=== PATIENT | female | born 1960 | race Hispanic/Latino ===

== ENCOUNTER 2017-09-23 10:32 | Observation (INO) | payer BC ==
[2017-09-23 10:47] VITALS: BMI 27.3
--- NOTE | 2017-09-23 11:45 | C.PDOC ---
History Of Present Illness 57 y/o F c PMHx CA 2 months ago s/p 2 stents p/w chest pain x 6 hours. Patient states she had nausea and vomited 3 times this morning, NBNB. Then began having chest pain that she describes as pressure in the L upper chest, nonradiating, constant. She reports associated shortness of breath earlier but now gone and some lightheadedness. Denies diaphoresis, leg swelling, abdominal pain, back pain. PMD Gael Previous stents placed at [facility]. Time Seen by Provider: 09/23/17 11:32 Chief Complaint (Nursing): Chest Pain Past Medical History Vital Signs: Last Vital Signs Temp 98.3 F 09/23/17 10:46 Pulse 63 09/23/17 10:46 Resp 18 09/23/17 11:10 BP 131/81 09/23/17 10:46 Pulse Ox 99 09/23/17 11:49 - Medical History PMH: Deep Vein Thrombosis, Fractures (right foot), HTN, Hypercholesterolemia, Pulmonary Embolism Surgical History: Coronary Stent (x2) Family History: States: No Known Family Hx - Social History Hx Alcohol Use: No Hx Substance Use: No - Immunization History Hx Tetanus Toxoid Vaccination: No Hx Influenza Vaccination: No Hx Pneumococcal Vaccination: No Review Of Systems Except As Marked, All Systems Reviewed And Found Negative. Constitutional: Negative for: Fever Respiratory: Negative for: Hemoptysis Physical Exam - Physical Exam Additional Physical Exam Comments: Gen: NAD Head: NC Eyes: No scleral icterus ENT: MMM Neck: Supple Chest: No tenderness CV: Regular rate Lung: CTA /l Abd: Soft, NT Back: No CVA tenderness Skin: No rash Extremities: No leg edema Neuro: Alert, no focal deficit ED Course And Treatment - Laboratory Results Result Diagrams: 09/23/17 11:47 09/23/17 11:47 O2 Sat by Pulse Oximetry: 99 Medical Decision Making Medical Decision Making: EKG Sinus rhythm, 54 bpm, no ST elevations. T wave inversions V1-V4. Q waves V1V2. ASA not administered due to allergy, patient becomes short of breath when taking. CXR no acute disease. Disposition Discussed With DrYareli: Trey Kelly Jr. Doctor Will See Patient In The: Hospital - Disposition Disposition: HOSPITALIZED Disposition Time: 12:29 Condition: FAIR Forms: InHomeVest (Mongolian) - POA Core Measure Indicators: Chest Pain - Clinical Impression Clinical Impression: Chest pain
[2017-09-23 11:56] LABS: BASO % 0.3 % (0.0-2.0); EOS # 0.8 K/uL (0.0-0.7); EOS % 19.3 % (0.0-4.0); HEMOGLOBIN 12.6 g/dL (11.0-16.0); LYMPH # 1.1 K/uL (1.0-4.3); LYMPH % 27.7 % (20.0-40.0); MEAN CELL VOLUME 80.1 fL (81.0-99.0); MEAN CORPUSCULAR HEMOGLOBIN 26.6 pg (27.0-31.0); MEAN CORPUSCULAR HGB CONC 33.2 g/dL (33.0-37.0); MEAN PLATELET VOLUME 10.6 fL (7.2-11.7); MONO # 0.5 K/uL (0.0-0.8); MONO % 12.3 % (0.0-10.0); NEUT # 1.6 K/uL (1.8-7.0); NEUT % 40.4 % (50.0-75.0); RBC 4.73 Mil/uL (3.80-5.20); RED CELL DISTRIBUTION WIDTH 15.1 % (11.5-14.5); WHITE BLOOD COUNT 3.9 K/uL (4.8-10.8)
[2017-09-23 12:04] LABS: ALB/GLOB RATIO 0.9 (1.0-2.1); ALBUMIN 3.9 g/dL (3.5-5.0); ALT/SGPT 179 U/L (9-52); AST/SGOT 128 U/L (14-36); BLOOD UREA NITROGEN 12 mg/dL (7-17); CALCIUM 9.1 mg/dl (8.6-10.4); GFR AFRICAN-AMERICAN > 60; GFR NON-AFRICAN AMERICAN > 60
[2017-09-23 12:09] LABS: INR 1.3; PROTHROMBIN TIME 15.2 SECONDS (9.7-12.2)
[2017-09-23 12:19] LABS: CK-MB 0.79 ng/mL (0.0-3.38)
--- NOTE | 2017-09-23 12:36 | RAD ---
HISTORY: chest pressure COMPARISON: No prior. FINDINGS: LUNGS: No active pulmonary disease. PLEURA: No significant pleural effusion identified, no pneumothorax apparent. CARDIOVASCULAR: Normal. Central pulmonary vasculature is top-normal. OSSEOUS STRUCTURES: No significant abnormalities. VISUALIZED UPPER ABDOMEN: Normal. OTHER FINDINGS: None. IMPRESSION: No active disease.
[2017-09-23 13:54] LABS: GAMMA GLUTAMYL TRANSPEPTIDASE 254 U/L (8-78)
--- NOTE | 2017-09-23 14:00 | CP.PCM.HP ---
History of Present Illness - History of Present Illness History of Present Illness: CC - "Chest pain" HPI - 57 y/o F c PMHx MA In Jun 2017 s/p 2 stents complains of chest pain which started this morning. Patient states she had nausea and vomited 3 times this morning, NBNB. She than began having chest pain that she describes as pressure in the L upper chest, radiating to her shoulder which was constant. She reported associated shortness of breath earlier but now gone and some lightheadedness. 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 She states this chest pain today does not feel the same as it did when she had her MA a few months ago. Denies diaphoresis, leg swelling, abdominal pain, back pain. Denies sick contacts or recent travel. 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 absent: Chest Pain at Rest, Leg Edema, Palpitations , Syncope - Respiratory Respiratory: absent: Cough, Dyspnea - Gastrointestinal Gastrointestinal: Nausea, Vomiting. absent: Abdominal Pain, Constipation, Diarrhea - Genitourinary Genitourinary: absent: Change in Urinary Stream, Difficulty Urinating - Reproductive: Female Reproductive:Female: Cycle >35 Days - Neurological Neurological: absent: Dizziness, Numbness, Weakness - Hematologic/Lymphatic Hematologic: absent: Easy Bleeding, Easy Bruising Past Patient History - Past Social History Smoking Status: Former Smoker - CARDIAC Hx Hypercholesterolemia: Yes Hx Hypertension: Yes - PULMONARY Hx Pulmonary Embolism: Yes - MUSCULOSKELETAL/RHEUMATOLOGICAL Hx Fractures: Yes (right foot) - PSYCHIATRIC Hx Substance Use: No - SURGICAL HISTORY Hx Coronary Stent: Yes (x2) - ANESTHESIA Hx Anesthesia: Yes Hx Anesthesia Reactions: No Hx Malignant Hyperthermia: No Meds Allergies/Adverse Reactions: Allergies Allergy/AdvReac Type Severity Reaction Status Date / Time aspirin Allergy Verified 09/23/17 10:46 egg Allergy Verified 09/23/17 10:46 latex Allergy Verified 09/23/17 10:46 morphine Allergy Verified 09/23/17 10:46 Sulfa (Sulfonamide Allergy Verified 09/23/17 10:46 Antibiotics) Physical Exam - Constitutional Appears: Non-toxic, No Acute Distress - Head Exam Head Exam: ATRAUMATIC, NORMAL INSPECTION - Eye Exam Eye Exam: EOMI, Normal appearance Pupil Exam: NORMAL ACCOMODATION - ENT Exam ENT Exam: Mucous Membranes Moist - Neck Exam Neck exam: Positive for: Normal Inspection - Respiratory Exam Respiratory Exam: Clear to Auscultation Bilateral, NORMAL BREATHING PATTERN. absent: Respiratory Distress - Cardiovascular Exam Cardiovascular Exam: REGULAR RHYTHM, +S1, +S2 Additional comments: non reproducible chest tenderness - GI/Abdominal Exam GI & Abdominal Exam: Normal Bowel Sounds, Soft. absent: Distended, Firm, Guarding, Tenderness - Extremities Exam Extremities exam: Positive for: normal inspection - Back Exam Back exam: NORMAL INSPECTION - Neurological Exam Neurological exam: Alert, CN II-XII Intact, Normal Gait, Oriented x3 - Psychiatric Exam Psychiatric exam: Normal Affect, Normal Mood - Skin Skin Exam: Dry, Intact, Normal Color, Warm Results - Vital Signs Recent Vital Signs: Last Vital Signs Temp 98.3 F 09/23/17 10:46 Pulse 78 09/23/17 13:44 Resp 16 09/23/17 13:44 BP 110/76 09/23/17 13:44 Pulse Ox 98 09/23/17 13:44 - Labs Result Diagrams: 09/23/17 11:47 09/23/17 11:47 Labs: Laboratory Results - last 24 hr 09/23/17 09/23/17 09/23/17 11:47 11:47 11:47 WBC 3.9 L RBC 4.73 Hgb 12.6 Hct 37.8 MCV 80.1 L MCH 26.6 L MCHC 33.2 RDW 15.1 H Plt Count 122 L MPV 10.6 Neut % (Auto) 40.4 L Lymph % (Auto) 27.7 Nicholas % (Auto) 12.3 H Eos % (Auto) 19.3 H Baso % (Auto) 0.3 Neut # (Auto) 1.6 L Lymph # (Auto) 1.1 Nicholas # (Auto) 0.5 Eos # (Auto) 0.8 H Baso # (Auto) 0.0 Differential Comment PT 15.2 H INR 1.3 APTT 37 H Sodium 145 Potassium 3.8 Chloride 106 Carbon Dioxide 25 Anion Gap 18 BUN 12 Creatinine 0.8 Est GFR ( Amer) > 60 Est GFR (Non-Af Amer) > 60 Random Glucose 115 H Calcium 9.1 Total Bilirubin 0.9 AST 128 H ALT 179 H Alkaline Phosphatase 351 H Total Creatine Kinase 61 CK-MB (Mass) 0.79 Troponin I 0.0240 Total Protein 8.1 Albumin 3.9 Globulin 4.2 H Albumin/Globulin Ratio 0.9 L Assessment & Plan - Assessment and Plan (Free Text) Assessment: Stable Angina r/o ACS, given patient's history of MA and stent placement in June 2017 cardiology consulted, Dr. Ruiz, help appreciated Trop #1 0.0240, f/u 2 more EKG Sinus rhythm, 54 bpm, no ST elevations. T wave inversions V1-V4. Q waves V1V2. f/u labs, lipid panel, HbA1c, Tsh f/u DDimer f/u echo Bisoprolol 2.5 mg PO daily Plavix 75mg PO daily Lisinopril 2.5mg PO daily Add Isosorbide 60mg PO daily Transaminitis AST/ALT 128/179 GGT 254 Alk phos 351 Tbil 0.0 f/u abd US Statin on hold f/u HIV Hepatitis panel Elevated blood glucose f/u HbA1c Hx DVT/PE on Eliquis f/u DDimer Prophylactic Measures Pepcid 20mg PO BID Eliquis 5mg PO BID Zofran prn nausea Heart healthy diet - NPO after midnight for abd US in am Discussed with Dr. Kelly. All management per Dr. Robin Bentley PGY 2
[2017-09-23 14:04] LABS: B-TYPE NATRIURETIC PEPTIDE 772 pg/mL (0-900)
[2017-09-23 14:26] LABS: HEPATITIS B SURFACE AG Negative (NEGATIVE)
[2017-09-23 14:32] LABS: HEPATITIS B CORE AB NEGATIVE (NEGATIVE)
[2017-09-23 15:27] LABS: HEPATITIS C ANTIBODY NEGATIVE (NEGATIVE)
[2017-09-23 15:58] VITALS: RESP 20
[2017-09-23 15:59] LABS: HEPATITIS A IGM NEGATIVE (NEGATIVE)
--- NOTE | 2017-09-23 20:18 | US ---
EXAM: US Abdomen Complete EXAM DATE/TIME: Exam ordered 09/23/2017 7:00 AM CLINICAL HISTORY: 57 years old, female; Abnormal findings; Abnormal lab test; Other: Elevated ast/alt TECHNIQUE: Real-time ultrasound of the abdomen (complete) with image documentation. COMPARISON: No relevant prior studies available. FINDINGS: Liver: The liver measures 17.6 cm in craniocaudal span. The liver is mildly heterogeneous in echotexture. The hepatic veins show normal blood flow direction. The middle hepatic vein shows normal phasic flow. No intrahepatic bile duct dilation. Gallbladder: Unremarkable. No gallstones. Common bile duct: Common bile duct measures 3 mm. No stones. No dilation. Pancreas: Unremarkable as visualized. Kidneys: The right kidney measures 11.7 x 4.2 x 4.4 cm. The left kidney measures 11.4 x 4.9 x 5.2 cm. No stones. No hydronephrosis. Spleen: The spleen measures 10.6 cm in craniocaudal span. Aorta: Unremarkable. No aneurysm. Inferior vena cava: Unremarkable. Free fluid: There is normal blood flow direction in the main portal vein. IMPRESSION: 1. Hepatomegaly. The liver is mildly heterogeneous in echotexture suggesting underlying infiltrative process. MR might be helpful.
[2017-09-23 20:37] LABS: CK-MB 0.65 ng/mL (0.0-3.38); TROPONIN I 0.034 ng/mL (0.00-0.120)
--- NOTE | 2017-09-23 23:42 | CARD ---
APPROVED REPORT EKG Measurement Heart [id number] <Conclusion> Sinus bradycardia Septal infarct, age undetermined T wave abnormality, consider anterior ischemia Abnormal ECG
--- NOTE | 2017-09-24 00:48 | CP.PCM.CON ---
History of Present Illness - History of Present Illness History of Present Illness: 57 F with hx of ND and stents, PE admitted for chest pain Trops x 2 negative Awaiting ECHO Continue current meds CC - "Chest pain" HPI - 57 y/o F c PMHx ND In Jun 2017 s/p 2 stents complains of chest pain which started this morning. Patient states she had nausea and vomited 3 times this morning, NBNB. She than began having chest pain that she describes as pressure in the L upper chest, radiating to her shoulder which was constant. She reported associated shortness of breath earlier but now gone and some lightheadedness. 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 She states this chest pain today does not feel the same as it did when she had her ND a few months ago. Denies diaphoresis, leg swelling, abdominal pain, back pain. Denies sick contacts or recent travel. 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 absent: Chest Pain at Rest, Leg Edema, Palpitations , Syncope - Respiratory Respiratory: absent: Cough, Dyspnea - Gastrointestinal Gastrointestinal: Nausea, Vomiting. absent: Abdominal Pain, Constipation, Diarrhea - Genitourinary Genitourinary: absent: Change in Urinary Stream, Difficulty Urinating - Reproductive: Female Reproductive:Female: Cycle >35 Days - Neurological Neurological: absent: Dizziness, Numbness, Weakness - Hematologic/Lymphatic Hematologic: absent: Easy Bleeding, Easy Bruising Physical Exam - Constitutional Appears: Non-toxic, No Acute Distress - Head Exam Head Exam: ATRAUMATIC, NORMAL INSPECTION - Eye Exam Eye Exam: EOMI, Normal appearance Pupil Exam: NORMAL ACCOMODATION - ENT Exam ENT Exam: Mucous Membranes Moist - Neck Exam Neck exam: Positive for: Normal Inspection - Respiratory Exam Respiratory Exam: Clear to Auscultation Bilateral, NORMAL BREATHING PATTERN. absent: Respiratory Distress - Cardiovascular Exam Cardiovascular Exam: REGULAR RHYTHM, +S1, +S2 Additional comments: non reproducible chest tenderness - GI/Abdominal Exam GI & Abdominal Exam: Normal Bowel Sounds, Soft. absent: Distended, Firm, Guarding, Tenderness - Extremities Exam Extremities exam: Positive for: normal inspection - Back Exam Back exam: NORMAL INSPECTION - Neurological Exam Neurological exam: Alert, CN II-XII Intact, Normal Gait, Oriented x3 - Psychiatric Exam Psychiatric exam: Normal Affect, Normal Mood - Skin Skin Exam: Dry, Intact, Normal Color, Warm Past Patient History - Past Social History Smoking Status: Former Smoker - CARDIAC Hx Hypercholesterolemia: Yes Hx Hypertension: Yes - PULMONARY Hx Pulmonary Embolism: Yes - MUSCULOSKELETAL/RHEUMATOLOGICAL Hx Fractures: Yes (right foot) - PSYCHIATRIC Hx Substance Use: No - SURGICAL HISTORY Hx Coronary Stent: Yes (x2) - ANESTHESIA Hx Anesthesia: Yes Hx Anesthesia Reactions: No Hx Malignant Hyperthermia: No Meds Allergies/Adverse Reactions: Allergies Allergy/AdvReac Type Severity Reaction Status Date / Time aspirin Allergy Verified 09/23/17 10:46 egg Allergy Verified 09/23/17 10:46 latex Allergy Verified 09/23/17 10:46 morphine Allergy Verified 09/23/17 10:46 Sulfa (Sulfonamide Allergy Verified 09/23/17 10:46 Antibiotics) - Medications Medications: Current Medications Apixaban (Eliquis) 5 mg PO BID [facility] Last Admin: 09/23/17 17:26 Dose: 5 mg Bisoprolol Fumarate (Zebeta) 2.5 mg PO DAILY [facility] Clopidogrel Bisulfate (Plavix) 75 mg PO DAILY [facility] Isosorbide Mononitrate (Imdur) 60 mg PO DAILY [facility] Lisinopril (Zestril) 2.5 mg PO DAILY [facility] Ondansetron HCl (Zofran Inj) 4 mg IVP Q6 PRN PRN Reason: Nausea/Vomiting Results - Vital Signs Recent Vital Signs: Last Vital Signs Temp 97.9 F 09/23/17 23:15 Pulse 59 L 09/23/17 23:15 Resp 20 09/23/17 23:15 BP 107/72 09/23/17 23:15 Pulse Ox 98 09/23/17 23:15 - Labs Result Diagrams: 09/24/17 07:58 09/24/17 07:58 Labs: Laboratory Results - last 24 hr 09/23/17 09/23/17 09/23/17 11:47 11:47 11:47 WBC 3.9 L RBC 4.73 Hgb 12.6 Hct 37.8 MCV 80.1 L MCH 26.6 L MCHC 33.2 RDW 15.1 H Plt Count 122 L MPV 10.6 Neut % (Auto) 40.4 L Lymph % (Auto) 27.7 [place] % (Auto) 12.3 H Eos % (Auto) 19.3 H Baso % (Auto) 0.3 Neut # (Auto) 1.6 L Lymph # (Auto) 1.1 [place] # (Auto) 0.5 Eos # (Auto) 0.8 H Baso # (Auto) 0.0 Differential Comment PT 15.2 H INR 1.3 APTT 37 H D-Dimer, Quantitative Sodium 145 Potassium 3.8 Chloride 106 Carbon Dioxide 25 Anion Gap 18 BUN 12 Creatinine 0.8 Est GFR ( Amer) > 60 Est GFR (Non-Af Amer) > 60 Random Glucose 115 H Calcium 9.1 Total Bilirubin 0.9 GGT 254 H AST 128 H ALT 179 H Alkaline Phosphatase 351 H Total Creatine Kinase 61 CK-MB (Mass) 0.79 Troponin I 0.0240 NT-Pro-B Natriuret Pep 772 Total Protein 8.1 Albumin 3.9 Globulin 4.2 H Albumin/Globulin Ratio 0.9 L TSH 3rd Generation Hepatitis A IgM Ab Hep Bs Antigen Hep B Core IgM Ab Hepatitis C Antibody 09/23/17 09/23/17 09/23/17 13:46 14:43 14:47 WBC RBC Hgb Hct MCV MCH MCHC RDW Plt Count MPV Neut % (Auto) Lymph % (Auto) [place] % (Auto) Eos % (Auto) Baso % (Auto) Neut # (Auto) Lymph # (Auto) [place] # (Auto) Eos # (Auto) Baso # (Auto) Differential Comment PT INR APTT D-Dimer, Quantitative 240 Sodium Potassium Chloride Carbon Dioxide Anion Gap BUN Creatinine Est GFR ( Amer) Est GFR (Non-Af Amer) Random Glucose Calcium Total Bilirubin GGT AST ALT Alkaline Phosphatase Total Creatine Kinase CK-MB (Mass) Troponin I NT-Pro-B Natriuret Pep Total Protein Albumin Globulin Albumin/Globulin Ratio TSH 3rd Generation 3.20 Hepatitis A IgM Ab Negative Hep Bs Antigen Negative Hep B Core IgM Ab Negative Hepatitis C Antibody Negative 09/23/17 20:02 WBC RBC Hgb Hct MCV MCH MCHC RDW Plt Count MPV Neut % (Auto) Lymph % (Auto) [place] % (Auto) Eos % (Auto) Baso % (Auto) Neut # (Auto) Lymph # (Auto) [place] # (Auto) Eos # (Auto) Baso # (Auto) Differential Comment PT INR APTT D-Dimer, Quantitative Sodium Potassium Chloride Carbon Dioxide Anion Gap BUN Creatinine Est GFR ( Amer) Est GFR (Non-Af Amer) Random Glucose Calcium Total Bilirubin GGT AST ALT Alkaline Phosphatase Total Creatine Kinase 54 CK-MB (Mass) 0.65 Troponin I 0.0340 NT-Pro-B Natriuret Pep Total Protein Albumin Globulin Albumin/Globulin Ratio TSH 3rd Generation Hepatitis A IgM Ab Hep Bs Antigen Hep B Core IgM Ab Hepatitis C Antibody Assessment & Plan - Assessment and Plan (Free Text) Assessment: Stable Angina Cardio (Joseph) - will follow cardio reccs All trops negative No ST changes or arrythmogenic intervals on EKG f/u echo Bisoprolol 2.5 mg PO daily Plavix 75mg PO daily Lisinopril 2.5mg PO daily Isosorbide 60mg PO daily Transaminitis abd US - heterogenous echotexture suggesting underlying infiltrative process - f /u with MR. Patient made aware and instructed to follow up with regular doctor to have this further investigated. Statin on hold HIV negatve hep negative Hx DVT/PE Eliquis 5 PO BID Prophylactic Measures GI PPx not indicated Eliquis 5mg PO BID
[2017-09-24 03:13] LABS: CK-MB 0.47 ng/mL (0.0-3.38); TROPONIN I 0.038 ng/mL (0.00-0.120)
[2017-09-24 04:35] VITALS: O2SAT 97
[2017-09-24 08:32] LABS: BASO % 0.5 % (0.0-2.0); EOS # 0.6 K/uL (0.0-0.7); EOS % 18.3 % (0.0-4.0); HEMOGLOBIN 11.9 g/dL (11.0-16.0); LYMPH # 1.1 K/uL (1.0-4.3); LYMPH % 30.2 % (20.0-40.0); MEAN CELL VOLUME 80.2 fL (81.0-99.0); MEAN CORPUSCULAR HEMOGLOBIN 26.7 pg (27.0-31.0); MEAN CORPUSCULAR HGB CONC 33.2 g/dL (33.0-37.0); MEAN PLATELET VOLUME 10.3 fL (7.2-11.7); MONO # 0.4 K/uL (0.0-0.8); NEUT # 1.4 K/uL (1.8-7.0); RBC 4.46 Mil/uL (3.80-5.20); RED CELL DISTRIBUTION WIDTH 15.1 % (11.5-14.5); WHITE BLOOD COUNT 3.5 K/uL (4.8-10.8)
[2017-09-24 08:39] LABS: ALB/GLOB RATIO 0.9 (1.0-2.1); ALBUMIN 3.4 g/dL (3.5-5.0); ALT/SGPT 179 U/L (9-52); AST/SGOT 147 U/L (14-36); BLOOD UREA NITROGEN 13 mg/dL (7-17); CALCIUM 8.9 mg/dl (8.6-10.4); GFR AFRICAN-AMERICAN > 60; GFR NON-AFRICAN AMERICAN > 60; HDL CHOLESTEROL 30 mg/dL (30-70)
[2017-09-24 08:50] LABS: LDL CHOLESTEROL 56 mg/dL (0-129)
[2017-09-24 09:24] VITALS: BP 100/68; PULSE 58; TEMP 97.6
--- NOTE | 2017-09-24 10:48 | CP.PCM.PN ---
<Sammy Covarrubias - Last Filed: 09/24/17 15:26> Subjective - Date & Time of Evaluation Date of Evaluation: 09/24/17 Time of Evaluation: 10:45 - Subjective Subjective: Patient seen and examined at bedside Doing well chest pain resolved wants to go home no other complaints at this time Echo today, follow cardio reccs Objective - Vital Signs/Intake and Output Vital Signs (last 24 hours): Temp Pulse Resp BP Pulse Ox 97.6 F 58 L 20 100/68 97 09/24/17 07:30 09/24/17 07:30 09/24/17 07:30 09/24/17 07:30 09/24/17 04:35 - Medications Medications: Current Medications Apixaban (Eliquis) 5 mg PO BID COUNTS INCLUDE 234 BEDS AT THE [facility] Last Admin: 09/24/17 10:17 Dose: 5 mg Bisoprolol Fumarate (Zebeta) 2.5 mg PO DAILY COUNTS INCLUDE 234 BEDS AT THE [facility] Last Admin: 09/24/17 10:18 Dose: 2.5 mg Clopidogrel Bisulfate (Plavix) 75 mg PO DAILY COUNTS INCLUDE 234 BEDS AT THE [facility] Last Admin: 09/24/17 10:16 Dose: Not Given Isosorbide Mononitrate (Imdur) 60 mg PO DAILY COUNTS INCLUDE 234 BEDS AT THE [facility] Last Admin: 09/24/17 10:17 Dose: Not Given Lisinopril (Zestril) 2.5 mg PO DAILY COUNTS INCLUDE 234 BEDS AT THE [facility] Last Admin: 09/24/17 10:19 Dose: 2.5 mg Ondansetron HCl (Zofran Inj) 4 mg IVP Q6 PRN PRN Reason: Nausea/Vomiting - Labs Labs: 09/24/17 07:58 09/24/17 07:58 PT 15.2 SECONDS (9.7-12.2) H 09/23/17 11:47 INR 1.3 09/23/17 11:47 APTT 37 SECONDS (21-34) H 09/23/17 11:47 - Constitutional Appears: Well - Head Exam Head Exam: ATRAUMATIC, NORMAL INSPECTION, NORMOCEPHALIC - Eye Exam Eye Exam: EOMI, Normal appearance, PERRL Pupil Exam: NORMAL ACCOMODATION, PERRL - ENT Exam ENT Exam: Mucous Membranes Moist, Normal Exam - Neck Exam Neck Exam: Full ROM, Normal Inspection. absent: Lymphadenopathy - Respiratory Exam Respiratory Exam: Clear to Ausculation Bilateral, NORMAL BREATHING PATTERN - Cardiovascular Exam Cardiovascular Exam: REGULAR RHYTHM, +S1, +S2. absent: Murmur - GI/Abdominal Exam GI & Abdominal Exam: Soft, Normal Bowel Sounds. absent: Tenderness - Extremities Exam Extremities Exam: Full ROM, Normal Capillary Refill, Normal Inspection. absent : Joint Swelling, Pedal Edema - Back Exam Back Exam: NORMAL INSPECTION - Neurological Exam Neurological Exam: Alert, Awake, CN II-XII Intact, Normal Gait, Oriented x3 - Psychiatric Exam Psychiatric exam: Normal Affect, Normal Mood - Skin Skin Exam: Dry, Intact, Normal Color, Warm Assessment and Plan - Assessment and Plan (Free Text) Assessment: Stable Angina Cardio (Joseph) - will follow cardio reccs All trops negative No ST changes or arrythmogenic intervals on EKG f/u echo Bisoprolol 2.5 mg PO daily Plavix 75mg PO daily Lisinopril 2.5mg PO daily Isosorbide 60mg PO daily Transaminitis abd US - heterogenous echotexture suggesting underlying infiltrative process - f /u with MR. Patient made aware and instructed to follow up with regular doctor to have this further investigated. Statin on hold HIV negatve hep negative Hx DVT/PE Eliquis 5 PO BID Prophylactic Measures GI PPx not indicated Eliquis 5mg PO BID <Trey Kelly Jr. - Last Filed: 09/24/17 15:45> Objective - Vital Signs/Intake and Output Vital Signs (last 24 hours): Temp Pulse Resp BP Pulse Ox 97.6 F 58 L 20 100/68 97 09/24/17 07:30 09/24/17 09:00 09/24/17 07:30 09/24/17 07:30 09/24/17 13:02 - Labs Labs: 09/24/17 07:58 09/24/17 07:58 PT 15.2 SECONDS (9.7-12.2) H 09/23/17 11:47 INR 1.3 09/23/17 11:47 APTT 37 SECONDS (21-34) H 09/23/17 11:47 Attending/Attestation - Attestation I have personally seen and examined this patient.: Yes I have fully participated in the care of the patient.: Yes I have reviewed all pertinent clinical information, including history, physical exam and plan: Yes Notes (Text): 09/24/17 15:45 Agree with resident note findings and plan of care
--- NOTE | 2017-09-24 15:28 | CP.PCM.DIS ---
Provider - Provider Date of Admission: 09/23/17 12:28 Attending physician: Trey Kelly Jr, MD Primary care physician: Fortino Consults: Joseph Time Spent in preparation of Discharge (in minutes): 45 Hospital Course - Lab Results Lab Results: Most Recent Lab Values WBC 3.5 K/uL (4.8-10.8) L 09/24/17 07:58 RBC 4.46 Mil/uL (3.80-5.20) 09/24/17 07:58 Hgb 11.9 g/dL (11.0-16.0) 09/24/17 07:58 Hct 35.7 % (34.0-47.0) 09/24/17 07:58 MCV 80.2 fL (81.0-99.0) L 09/24/17 07:58 MCH 26.7 pg (27.0-31.0) L 09/24/17 07:58 MCHC 33.2 g/dL (33.0-37.0) 09/24/17 07:58 RDW 15.1 % (11.5-14.5) H 09/24/17 07:58 Plt Count 124 K/uL (130-400) L 09/24/17 07:58 MPV 10.3 fL (7.2-11.7) 09/24/17 07:58 Neut % (Auto) 39.0 % (50.0-75.0) L 09/24/17 07:58 Lymph % (Auto) 30.2 % (20.0-40.0) 09/24/17 07:58 Smith % (Auto) 12.0 % (0.0-10.0) H 09/24/17 07:58 Eos % (Auto) 18.3 % (0.0-4.0) H 09/24/17 07:58 Baso % (Auto) 0.5 % (0.0-2.0) 09/24/17 07:58 Neut # (Auto) 1.4 K/uL (1.8-7.0) L 09/24/17 07:58 Lymph # (Auto) 1.1 K/uL (1.0-4.3) 09/24/17 07:58 Smith # (Auto) 0.4 K/uL (0.0-0.8) 09/24/17 07:58 Eos # (Auto) 0.6 K/uL (0.0-0.7) 09/24/17 07:58 Baso # (Auto) 0.0 K/uL (0.0-0.2) 09/24/17 07:58 Differential Comment 09/23/17 11:47 PT 15.2 SECONDS (9.7-12.2) H 09/23/17 11:47 INR 1.3 09/23/17 11:47 APTT 37 SECONDS (21-34) H 09/23/17 11:47 D-Dimer, Quantitative 240 ng/mlDDU (0-243) 09/23/17 14:47 Sodium 144 mmol/L (132-148) 09/24/17 07:58 Potassium 3.9 mmol/L (3.6-5.2) 09/24/17 07:58 Chloride 105 mmol/L (98-107) 09/24/17 07:58 Carbon Dioxide 28 mmol/L (22-30) 09/24/17 07:58 Anion Gap 15 (10-20) 09/24/17 07:58 BUN 13 mg/dL (7-17) 09/24/17 07:58 Creatinine 0.9 mg/dL (0.7-1.2) 09/24/17 07:58 Est GFR ( Amer) > 60 09/24/17 07:58 Est GFR (Non-Af Amer) > 60 09/24/17 07:58 Random Glucose 85 mg/dL (65-105) 09/24/17 07:58 Hemoglobin A1c 5.7 % (4.2-6.5) 09/24/17 07:58 Calcium 8.9 mg/dl (8.6-10.4) 09/24/17 07:58 Total Bilirubin 0.9 mg/dL (0.2-1.3) 09/24/17 07:58 GGT 254 U/L (8-78) H 09/23/17 11:47 AST 147 U/L (14-36) H 09/24/17 07:58 ALT 179 U/L (9-52) H 09/24/17 07:58 Alkaline Phosphatase 344 U/L (38-126) H 09/24/17 07:58 Total Creatine Kinase 55 U/L (30-135) 09/24/17 02:20 CK-MB (Mass) 0.47 ng/mL (0.0-3.38) 09/24/17 02:20 Troponin I 0.0380 ng/mL (0.00-0.120) 09/24/17 02:20 NT-Pro-B Natriuret Pep 772 pg/mL (0-900) 09/23/17 11:47 Total Protein 7.4 g/dL (6.3-8.3) 09/24/17 07:58 Albumin 3.4 g/dL (3.5-5.0) L 09/24/17 07:58 Globulin 3.9 gm/dL (2.2-3.9) 09/24/17 07:58 Albumin/Globulin Ratio 0.9 (1.0-2.1) L 09/24/17 07:58 Triglycerides 88 mg/dL (0-149) 09/24/17 07:58 Cholesterol 119 mg/dL (0-199) 09/24/17 07:58 LDL Cholesterol Direct 56 mg/dL (0-129) 09/24/17 07:58 HDL Cholesterol 30 mg/dL (30-70) 09/24/17 07:58 TSH 3rd Generation 3.20 mIU/L (0.46-4.68) 09/23/17 14:43 Hepatitis A IgM Ab Negative (NEGATIVE) 09/23/17 13:46 Hep Bs Antigen Negative (NEGATIVE) 09/23/17 13:46 Hep B Core IgM Ab Negative (NEGATIVE) 09/23/17 13:46 Hepatitis C Antibody Negative (NEGATIVE) 09/23/17 13:46 HIV 1&2 Antibody Screen Negative (NEGATIVE) 09/24/17 07:58 - Hospital Course Hospital Course: 57 y/o F c PMHx NV In Jun 2017 s/p 2 stents complains of chest pain which started this morning. Patient states she had nausea and vomited 3 times this morning, NBNB. She than began having chest pain that she describes as pressure in the L upper chest, radiating to her shoulder which was constant. She reported associated shortness of breath earlier but now gone and some lightheadedness. She has been compliant with Plavix therapy (not on asa due to allergy) and follows up regularly with her hand potter outpatient. She states this chest pain today does not feel the same as it did when she had her NV a few months ago. Denies diaphoresis, leg swelling, abdominal pain, back pain. Denies sick contacts or recent travel. Discharge Exam - Head Exam Head Exam: ATRAUMATIC, NORMAL INSPECTION, NORMOCEPHALIC - Eye Exam Eye Exam: EOMI, Normal appearance, PERRL Pupil Exam: NORMAL ACCOMODATION, PERRL - GI/Abdominal Exam GI & Abdominal Exam: Normal Bowel Sounds - Neurological Exam Neurological exam: Alert, CN II-XII Intact, Normal Gait, Oriented x3, Reflexes Normal - Psychiatric Exam Psychiatric exam: Normal Affect, Normal Mood - Skin Skin Exam: Dry, Intact, Normal Color, Warm Discharge Plan - Follow Up Plan Condition: FAIR Disposition: HOME/ ROUTINE Instructions: Heart Healthy Diet, Chest Pain (DC) Additional Instructions: Please follow up with regular doctor in 7-10 days. Bring results of Abdominal US so they can follow up liver findings Referrals: Trey Kelly Jr., MD [Medical Doctor] -
--- NOTE | 2017-09-24 17:38 | CARD ---
APPROVED REPORT EXAM: Two-dimensional and M-mode echocardiogram with Doppler and color Doppler. Other Information Quality : GoodRhythm : INDICATION Non STEMI RISK FACTORS Hypertension Hyperlipidemia 2D DIMENSIONS IVSd1.0 (0.7-1.1cm)LVDd4.7 (3.9-5.9cm) PWd1.0 (0.7-1.1cm)LVDs2.7 (2.5-4.0cm) FS (%) 43.0 %LVEF (%)50.0 (>50%) M-Mode DIMENSIONS Left Atrium (MM)2.88 (2.5-4.0cm)Aortic Root3.48 (2.2-3.7cm) Aortic Cusp Exc.2.38 (1.5-2.0cm) Mitral Valve MV E Hthagwhq46.9cm/sMV A Bxzbxyja89.0cm/sE/A ratio1.0 TDI E/Lateral E'0.0E/Medial E'0.0 Tricuspid Valve TR Peak Ywblrvzr050cb/sTR Peak Gr.[id number] LEFT VENTRICLE The left ventricle is normal size. There is normal left ventricular wall thickness. Left ventricle ejection fraction is borderline. Septal and Apical hypokinesis Transmitral Doppler flow pattern is abnormal. RIGHT VENTRICLE The right ventricle is normal size. There is normal right ventricular wall thickness. The right ventricular systolic function is normal. ATRIA The left atrium size is normal. The right atrium size is normal. AORTIC VALVE The aortic valve is mildly thickened. No aortic regurgitation is present. There is no aortic valvular stenosis. MITRAL VALVE The mitral valve is mildly thickened. There is no mitral valve stenosis. Mitral regurgitation is trace. TRICUSPID VALVE The tricuspid valve is normal in structure. There is no tricuspid valve regurgitation noted. GREAT VESSELS The aortic root is normal in size. The IVC is normal in size and collapses >50% with inspiration. PERICARDIAL EFFUSION There is no pericardial effusion. <Conclusion> The left ventricle is normal size. There is normal left ventricular wall thickness. Left ventricle ejection fraction is borderline. Septal and Apical hypokinesis
== END 2017-09-24 15:26 | disposition home or self-care (01) ==
LOC: C.ER 10:32 → C.9E 12:28 → C.6T 13:35
PROVIDERS: ADMIT Internal Medicine; ATTEND Internal Medicine
DX: I20.8 Other forms of angina pectoris (principal); I25.2 Old myocardial infarction; Z95.5 Presence of coronary angioplasty implant and graft; Z86.718 Personal history of other venous thrombosis and embolism; I10 Essential (primary) hypertension; E78.00 Pure hypercholesterolemia, unspecified; Z86.711 Personal history of pulmonary embolism; Z79.02 Long term (current) use of antithrombotics/antiplatelets; Z88.6 Allergy status to analgesic agent; Z88.0 Allergy status to penicillin; Z88.2 Allergy status to sulfonamides; Z88.5 Allergy status to narcotic agent; Z91.040 Latex allergy status; Z91.012 Allergy to eggs; Z79.01 Long term (current) use of anticoagulants; Z82.49 Family history of ischemic heart disease and other diseases of the circulatory system; Z87.891 Personal history of nicotine dependence; R74.0 Nonspecific elevation of levels of transaminase and lactic acid dehydrogenase [LDH]; R73.9 Hyperglycemia, unspecified
CPT/HCPCS: 36415; 71045; 76700; 80053; 80061; 80074; 82550; 82553; 82977; 83036; 83880; 84443; 84484; 85025; 85378; 85610; 85730; 86592; 86703; 93005; 93306; 99285; G0378

== ENCOUNTER 2018-08-16 00:10 | Emergency (ER) | payer BC ==
[2018-08-16 00:11] VITALS: BMI 27.3
[2018-08-16 00:23] VITALS: O2SAT 96
--- NOTE | 2018-08-16 00:32 | C.PDOC ---
History Of Present Illness 58 year old female with PMHx of AR on Jun 2017 s/p stents x 2 presents to the ED c/o persistent left lower lip/facial area swelling associated itching that started this morning. Patient states she applied oragel twice last night to left lower tooth gum. Patient currently on clindamycin for tooth infection for the past week. Patient denies fever, chills, SOB, wheezing. PERSIST L LOWER LIP/FACIAL SWELL SINCE THIS MORNING. PS APPLIED ORAGEL TWICE LAST NIGHT TO LOWER L TOOTH GUM. ON CLINDAMYCIN FOR TOOTH INFXN X 1 WEEK. NO FEVER. +ASSOC ITCH. NO SOB PMHx AR In Jun 2017 s/p 2 stents EXAM NAD NONTOXIC HEENT +ANGIOEDEMA L LAT TONGUE, LOWER LIP. NO STRIDOR, DROOL NECK SUPPLE NO HIVES REMAINDER NEG Time Seen by Provider: 08/16/18 00:31 Chief Complaint (Nursing): Allergic Reaction History Per: Patient History/Exam Limitations: no limitations Onset/Duration Of Symptoms: Days Current Symptoms Are (Timing): Still Present Possible Cause: Medication Home/EMS Treatment: None Recent travel outside of the [place]: No Additional History Per: Patient Past Medical History Reviewed: Historical Data, Nursing Documentation, Vital Signs Vital Signs: Last Vital Signs Temp 99 F 08/16/18 00:17 Pulse 85 08/16/18 00:17 Resp 24 08/16/18 00:17 BP 111/82 08/16/18 00:17 Pulse Ox 96 08/16/18 00:17 - Medical History PMH: Deep Vein Thrombosis, Fractures (right foot), HTN, Hypercholesterolemia, Pulmonary Embolism Surgical History: Coronary Stent (x2) Family History: States: Unknown Family Hx - Social History Hx Alcohol Use: No Hx Substance Use: No - Immunization History Hx Tetanus Toxoid Vaccination: No Hx Influenza Vaccination: No Hx Pneumococcal Vaccination: No Review Of Systems Constitutional: Negative for: Fever, Chills ENT: Positive for: Mouth Swelling. Negative for: Throat Swelling Respiratory: Negative for: Cough, Shortness of Breath, Sputum, Wheezing Gastrointestinal: Negative for: Nausea, Vomiting, Abdominal Pain Skin: Negative for: Rash Neurological: Negative for: Weakness, Numbness Physical Exam - Physical Exam Appears: Non-toxic, No Acute Distress Skin: Normal Color, Warm, Dry, No Rash Head: Atraumatic, Normacephalic Eye(s): bilateral: Normal Inspection Nose: No Discharge Oral Mucosa: Moist, No Drooling Tongue: Swelling (+ANGIOEDEMA L LAT TONGUE) Lips: Swelling (left lower lip), Other Throat: Normal, No Erythema, No Exudate, No Drooling, Other (uvula midline, airway patent) Neck: Normal ROM, Supple Chest: Symmetrical Cardiovascular: Rhythm Regular Respiratory: Normal Breath Sounds, No Rales, No Rhonchi, No Stridor, No Wheezing Extremity: Normal ROM, No Tenderness, No Swelling Neurological/Psych: Oriented x3, Normal Speech, Normal Cognition Gait: Steady ED Course And Treatment O2 Sat by Pulse Oximetry: 96 (ON RA) Pulse Ox Interpretation: Normal Reevaluation Time: 02:08 Reassessment Condition: Improved Medical Decision Making Medical Decision Making: Plan: * Pepcid 20 mg IVP * Hydrocortisone 100 mg IV Disposition Counseled Patient/Family Regarding: Diagnosis, Need For Followup, Rx Given - Disposition Referrals: YOUR,PMD [Other] Disposition: HOME/ ROUTINE Disposition Time: 02:08 Condition: IMPROVED Prescriptions: Dexamethasone [Decadron] 12 mg PO ONCE #2 tablet Famotidine [Pepcid AC] 10 mg PO DAILY #4 tablet Instructions: Angioedema (DC) Forms: [employer] (Bhutanese) - Clinical Impression Clinical Impression: Angioedema - Scribe Statement The provider has reviewed the documentation as recorded by the Scribe Sky Kaur All medical record entries made by the Scribe were at my direction and personally dictated by me. I have reviewed the chart and agree that the record accurately reflects my personal performance of the history, physical exam, medical decision making, and the department course for this patient. I have also personally directed, reviewed, and agree with the discharge instructions and disposition.
[2018-08-16 02:02] VITALS: BP 104/69; PULSE 67; RESP 16; TEMP 98.2
== END 2018-08-16 02:19 | disposition home or self-care (01) ==
LOC: C.ER 00:10
DX: T78.3XXA Angioneurotic edema, initial encounter (principal); E78.00 Pure hypercholesterolemia, unspecified; I10 Essential (primary) hypertension
CPT/HCPCS: 96374; 99284; J1720

== ENCOUNTER 2018-08-16 14:03 | Emergency (ER) | payer BC ==
[2018-08-16 14:19] VITALS: BP 101/70; PULSE 74; RESP 18; TEMP 97.8; O2SAT 99
[2018-08-16] MEDS ORDERED: Dexamethasone 4 mg/1 ml IM STA (14:26)
--- NOTE | 2018-08-16 14:28 | C.PDOC ---
History Of Present Illness 58 y/o female comes in to ED requesting a dose of dexamethasone. Patient was seen here last night for swelling on the left side of her tongue and also on her left cheek after she used orajel for dental pain. Patient states she previously used orajel and had an allergic reaction to it. Yesterday she was given IV steroids and was instructed to take another dose today, but she states she has not been able to find a pharmacy that carries the medication. Patient reports symptoms have improved and the swelling has decreased. She denies SOB or drooling. Time Seen by Provider: 08/16/18 14:19 Chief Complaint (Nursing): Abnormal Skin Integrity History Per: Patient History/Exam Limitations: no limitations Onset/Duration Of Symptoms: Days Current Symptoms Are (Timing): Still Present Past Medical History Reviewed: Historical Data, Nursing Documentation, Vital Signs Vital Signs: Last Vital Signs Temp 97.8 F 08/16/18 14:11 Pulse 74 08/16/18 14:11 Resp 18 08/16/18 14:11 BP 101/70 08/16/18 14:11 Pulse Ox 99 08/16/18 14:11 - Medical History PMH: Deep Vein Thrombosis, Fractures (right foot), HTN, Hypercholesterolemia, Pulmonary Embolism Surgical History: Coronary Stent (x2) Family History: States: No Known Family Hx - Social History Hx Alcohol Use: No Hx Substance Use: No - Immunization History Hx Tetanus Toxoid Vaccination: No Hx Influenza Vaccination: No Hx Pneumococcal Vaccination: No Review Of Systems Constitutional: Negative for: Fever, Chills ENT: Positive for: Other (Left-sided tongue and cheek swelling). Negative for: Throat Pain Cardiovascular: Negative for: Chest Pain Respiratory: Negative for: Shortness of Breath Gastrointestinal: Negative for: Nausea, Vomiting Physical Exam - Physical Exam Appears: Non-toxic, No Acute Distress Skin: Warm, Dry Head: Atraumatic, Normacephalic, Swelling (mild swelling of left side of cheek, no palpable abscess) Eye(s): bilateral: Normal Inspection Oral Mucosa: Moist Tongue: Swelling (mild swelling of the left lateral tongue) Lips: Normal Appearing Teeth: Other (poor dentition) Throat: Normal, No Erythema, No Exudate, No Drooling, Other (uvula and tonsils normal) Cardiovascular: Rhythm Regular, No Murmur Respiratory: Normal Breath Sounds, No Rales, No Rhonchi, No Stridor, No Wheezing Extremity: Bilateral: Atraumatic, Normal Color And Temperature, Normal ROM Neurological/Psych: Oriented x3, Normal Speech ED Course And Treatment O2 Sat by Pulse Oximetry: 99 (RA) Pulse Ox Interpretation: Normal Progress Note: Patient was given decadron IM one dose. Disposition - Disposition Referrals: Piter Mayo MD [Medical Doctor] - Disposition: HOME/ ROUTINE Disposition Time: 14:45 Condition: STABLE Additional Instructions: FOLLOW UP WITH YOUR DOCTOR/CLINIC IN 1-2 DAYS RETURN TO ED IMMEDIATELY IF SYMPTOMS BEGIN TO WORSEN DO NOT USE ORAJEL IN THE FUTURE Instructions: Drug Allergy Forms: [email or web address] (Nigerien) Print Language: TURKISH - Clinical Impression Clinical Impression: Medication administered, Mild tongue swelling, Allergic drug reaction - Scribe Statement The provider has reviewed the documentation as recorded by the Wolfibsantiago Gruber Provider Attestation: All medical record entries made by the Wolfibe were at my direction and personally dictated by me. I have reviewed the chart and agree that the record accurately reflects my personal performance of the history, physical exam, medical decision making, and the department course for this patient. I have also personally directed, reviewed, and agree with the discharge instructions and disposition.
[2018-08-16] MEDS ORDERED: Dexamethasone 4 mg/1 ml ONE (14:42)
== END 2018-08-16 14:50 | disposition home or self-care (01) ==
LOC: C.ER 14:03
DX: R22.0 Localized swelling, mass and lump, head (principal); T41.3X5A Adverse effect of local anesthetics, initial encounter; I10 Essential (primary) hypertension; E78.00 Pure hypercholesterolemia, unspecified
CPT/HCPCS: 96372; 99283; J1100